=== PATIENT | male | born 1965 | race Two or more races ===

== ENCOUNTER 2016-11-01 23:32 | Emergency (ER) | payer MEDICAID, OTHER ==
[~2016-11-01] VITALS: Ht 175.3 cm; Wt 63.5 kg
[2016-11-01 23:49] VITALS: BP 123/83
[2016-11-02] MEDS ORDERED: BACITRACIN TOP OINT 1 UD PKG TOP ONE (01:30)
[2016-11-02] MEDS ORDERED: CYCLOBENZAPRINE HCL 10 MG TAB PO ONE (01:30)
[2016-11-02] MEDS ORDERED: IBUPROFEN 600 MG TAB PO ONE (01:30)
== END 2016-11-02 02:05 | disposition home or self-care (01) ==
LOC: ER 23:32
DX: S13.4XXA Sprain of ligaments of cervical spine, initial encounter (principal); S80.02XA Contusion of left knee, initial encounter; S80.01XA Contusion of right knee, initial encounter; M19.90 Unspecified osteoarthritis, unspecified site; V49.9XXA Car occupant (driver) (passenger) injured in unspecified traffic accident, initial encounter; Y93.89 Activity, other specified; Y99.8 Other external cause status; Y92.89 Other specified places as the place of occurrence of the external cause